=== PATIENT | male | born 1985 | race Caucasian/White ===

== ENCOUNTER 2019-07-11 19:19 | Emergency (ER) | payer OTHER ==
[2019-07-11] MEDS ORDERED: MORPHINE 4 MG/ML SYR ONE (19:42)
[2019-07-11] MEDS ORDERED: ONDANSETRON 4 MG/2 ML VIAL ONE (19:43)
[2019-07-11] MEDS ORDERED: DIAZEPAM 10 MG/2 ML INJ SYRINGE ONE (19:43)
--- NOTE | 2019-07-11 20:15 | RAD REPORT ---
EXAM DESCRIPTION: CT - CTHCSPWOC - 07/11/2019 7:53 pm CLINICAL HISTORY: Trauma, head and neck injury. PAIN COMPARISON: Thoracic Spine W/o Cont dated 07/11/2019 TECHNIQUE: Axial 5 mm thick images of the head were obtained. Axial 2 mm thick images of the cervical spine were obtained with sagittal and coronal reconstruction images generated and reviewed. All CT scans are performed using dose optimization technique as appropriate and may include automated exposure control or mA/KV adjustment according to patient size. FINDINGS: CT HEAD WITHOUT CONTRAST: No acute hemorrhage, hydrocephalus or extra-axial collection is identified.No areas of brain edema or midline shift. The paranasal sinuses and mastoids are clear.The calvarium is intact. CT CERVICAL SPINE WITHOUT CONTRAST: No fracture or subluxation.Moderate lower cervical spondylosis with small endplate osteophyte. Centra l canal stenosis may be present at the C6-7 and C7-T1 level.No prevertebral soft tissues swelling is identified. IMPRESSION: No acute intracranial or cervical spine findings. Moderate lower cervical spondylosis with possible canal stenosis present. Consider followup nonemerge nt MR cervical spine imaging for further detailed assessment.
--- NOTE | 2019-07-11 20:17 | RAD REPORT ---
EXAM DESCRIPTION: CT - Thoracic Spine W/o Cont - 07/11/2019 7:53 pm CLINICAL HISTORY: Radiculopathy. PAIN COMPARISON: Head C Spine Mpr Wo Con dated 07/11/2019 TECHNIQUE: Axial CT imaging through the thoracic spine was performed with coronal and sagittal re-fo rmatted images. All CT scans are performed using dose optimization technique as appropriate and may include automated exposure control or mA/KV adjustment according to patient size. FINDINGS: Vertebral body heights and disc spaces are maintained. A compression fracture is not prese nt. No significant disc space narrowing. Thoracic spine alignment is within normal limits. No paraspinal masses or hematoma. Intervertebral disc detail is inherently limited on CT without gross findings of canal compromise. Multiple small stones are present in the calices of both kidneys. IMPRESSION: No acute thoracic spine abnormality discerned. Bilateral nephrolithiasis.
[2019-07-11 20:28] LABS: Absolute Lymphocytes (CBC) 1.2 K/uL (0.7-4.9); Basophils % 0.5 % (0-1.3); Hematocrit 45.2 % (39.6-49.0); Lymphocytes % 10.2 % (15.3-44.8); MPV 8.4 fL (7.6-11.3); RBC Red Blood Cell Count 4.95 M/uL (4.33-5.43)
[2019-07-11 20:50] LABS: Albumin 4.5 g/dL (3.4-5.0); Bilirubin Direct 0.1 mg/dL (0-0.2); Bilirubin Total 0.4 mg/dL (0.2-1.0); Potassium 4.1 mmol/L (3.5-5.1); Protein, Total 8.3 g/dL (6.4-8.2)
[2019-07-11] MEDS ORDERED: FENTANYL CITR 100 MCG/2 ML ONE (21:20)
--- NOTE | 2019-07-11 21:53 | EDPHYS ---
Physician Documentation [facility] Name: Spencer Simms Age: 33 yrs Sex: Male : 1985 Arrival Date: 07/11/2019 Time: 19:21 Bed 4 Private MD: ED Physician Ta Ryan HPI: 07/11 02:06 This 33 yrs old Male presents to ER via Wheelchair with complaints of Neck tw4 Injury, Possible Stroke. 02:06 The patient or guardian complains of decreased range of motion, pain, that is acute. tw4 The symptoms are located at the cervical spine. Onset: The symptoms/episode began/occurred just prior to arrival, today. Context: The problem was sustained at home. Associated signs and symptoms: The patient has no apparent associated signs or symptoms. The pain radiates to the left trapezius and left scapular area. Modifying factors: The symptoms are alleviated by nothing. the symptoms are aggravated by movement. The patient has not experienced similar symptoms in the past. 02:11 Pt has a history of chronic neck pain. tw4 Historical: - Allergies: 20:09 Toradol; ea - Immunization history:: Adult Immunizations up to date. - Social history:: Smoking status: Patient reports the use of cigarette tobacco products, smokes one-half pack cigarettes per day. ROS: 07/11 02:06 Constitutional: Negative for fever, chills, and weight loss, Eyes: Negative for injury, tw4 pain, redness, and discharge, Cardiovascular: Negative for chest pain, palpitations, and edema, Respiratory: Negative for shortness of breath, cough, wheezing, and pleuritic chest pain, Abdomen/GI: Negative for abdominal pain, nausea, vomiting, diarrhea, and constipation, Back: Negative for injury and pain, MS/Extremity: Negative for injury and deformity, Skin: Negative for injury, rash, and discoloration. Neck: Positive for pain with movement, pain at rest, Negative for injury or acute deformity, mass. Neuro: Positive for weakness. Exam: 02:06 Constitutional: This is a well developed, well nourished patient who is awake, alert, tw4 and in no acute distress. Eyes: Pupils equal round and reactive to light, extra-ocular motions intact. Lids and lashes normal. Conjunctiva and sclera are non-icteric and not injected. Cornea within normal limits. Periorbital areas with no swelling, redness, or edema. Chest/axilla: Normal chest wall appearance and motion. Nontender with no deformity. No lesions are appreciated. Cardiovascular: Regular rate and rhythm with a normal S1 and S2. No gallops, murmurs, or rubs. Normal PMI, no JVD. No pulse deficits. Respiratory: Lungs have equal breath sounds bilaterally, clear to auscultation and percussion. No rales, rhonchi or wheezes noted. No increased work of breathing, no retractions or nasal flaring. Abdomen/GI: Soft, non-tender, with normal bowel sounds. No distension or tympany. No guarding or rebound. No evidence of tenderness throughout. Back: No spinal tenderness. No costovertebral tenderness. Full range of motion. MS/ Extremity: Pulses equal, no cyanosis. Neurovascular intact. Full, normal range of motion. Neuro: Awake and alert, GCS 15, oriented to person, place, time, and situation. Cranial nerves II-XII grossly intact. Motor strength 5/5 in all extremities. Sensory grossly intact. Cerebellar exam normal. Normal gait. 02:06 Neck: External neck: tenderness, that is moderate, of the left mid cervical area, right mid cervical area and lower cervical area. Vital Signs: 20:22 BP 173 / 113; Pulse 91; Resp 18; Temp 98.5; Pulse Ox 100% on R/A; Pain 10/10; jd3 20:38 BP 149 / 112; Pulse 85; Resp 18; Pulse Ox 100% on R/A; mg2 20:41 Pain 8/10; jd3 22:26 BP 168 / 105; Pulse 85; Resp 17 S; Pulse Ox 100% on R/A; jd3 MDM: 19:34 Patient medically screened. tw4 07/11 02:06 Data reviewed: vital signs, nurses notes. Data interpreted: Pulse oximetry: tw4 Interpretation: normal. Counseling: I had a detailed discussion with the patient and/or guardian regarding: the historical points, exam findings, and any diagnostic results supporting the discharge/admit diagnosis. Medication response: morphine partially relieved the patient's pain, valium. Response to treatment: the patient's symptoms have markedly improved after treatment, and as a result, I will discharge patient. Special discussion: I discussed with the patient/guardian in detail that at this point there is no indication for admission to the hospital. It is understood, however, that if the symptoms persist or worsen the patient needs to return immediately for re-evaluation. 19:33 Order name: Basic Metabolic Panel; Complete Time: 21:12 21:12 Interpretation: Normal except: GLUC 123; GFR 75. 19:33 Order name: CBC with Diff; Complete Time: 21:12 21:13 Interpretation: Normal except: WBC 12.2; LYM% 10.2; CESAR% 82.9; NEUT A 10.1. 19:33 Order name: Creatinine for Radiology; Complete Time: 21:12 21:13 Interpretation: Within normal limits: CRE 1.09. 19:33 Order name: Hepatic Function; Complete Time: 21:12 21:13 Interpretation: Normal except: TP 8.3; GLOB 3.8. 19:33 Order name: CT Thoracic Spine Wo Cont; Complete Time: 20:34 19:33 Order name: IV Saline Lock; Complete Time: 20:23 19:33 Order name: Labs collected and sent; Complete Time: 20:23 19:45 Order name: Head C Spine Mpr Wo Con; Complete Time: 20:34 EDMS Administered Medications: 20:23 Drug: Diazepam 1 mg Route: IVP; Site: left antecubital; mg2 20:42 Follow up: Response: No adverse reaction jd3 20:23 Drug: morphine 4 mg Route: IVP; Site: left antecubital; mg2 20:41 Follow up: Pain 8/10 Adult; Response: No adverse reaction; Pain is decreased; RASS: jd3 Alert and Calm (0) 20:23 Drug: Zofran (Ondansetron) 4 mg Route: IVP; Site: left antecubital; mg2 20:41 Follow up: Response: No adverse reaction jd3 21:19 Drug: fentaNYL (PF) 25 mcg Route: IVP; Site: left antecubital; mg2 22:19 Follow up: Response: No adverse reaction; RASS: Alert and Calm (0) jd3 Disposition: 02/29/20 21:52 Discharged to Home. Impression: Other chronic pain, Sprain of ligaments of cervical spine, Sprain of ligaments of thoracic spine. - Condition is Stable. - Discharge Instructions: Chronic Pain, Cervical Sprain. - Prescriptions for Neurontin 300 mg Oral Capsule - take 1 capsule by ORAL route At bedtime; 20 capsule. - Medication Reconciliation Form, Thank You Letter, Antibiotic Education, Prescription Opioid Use form. - Follow up: Private Physician; When: Upon discharge from the Emergency Department; Reason: Recheck today's complaints, Continuance of care, Re-evaluation by your physician. Follow up: Mario Desir MD; When: Upon discharge from the Emergency Department; Reason: If symptoms return, Recheck today's complaints, Continuance of care. Follow up: Darwin Herrera MD; When: Upon discharge from the Emergency Department; Reason: If symptoms return, Recheck today's complaints, Continuance of care, Re-evaluation by your physician. Follow up: Onur Garcia MD; When: Upon discharge from the Emergency Department; Reason: If symptoms return, Recheck today's complaints, Continuance of care, Re-evaluation by your physician. Follow up: Monico Marcum MD; When: Upon discharge from the Emergency Department; Reason: If symptoms return, Recheck today's complaints, Continuance of care, Re-evaluation by your physician. Follow up: Ricci Frnaks MD; When: Upon discharge from the Emergency Department; Reason: If symptoms return, Recheck today's complaints, Continuance of care, Re-evaluation by your physician. Follow up: Jb Duran MD; When: Upon discharge from the Emergency Department; Reason: If symptoms return, Recheck today's complaints, Continuance of care, Re-evaluation by your physician. Signatures: Dispatcher [employer] [facility] Jaz Moncada RN Albert Hussein ea, RN RN jd3 Ta Ryan MD MD tw4 Bonilla Davis RN RN mg2 Corrections: (The following items were deleted from the chart) 19:45 19:34 C Spine Wo Con+CT.RAD.BRZ ordered. [facility] 22:27 21:52 07/11/2019 21:52 Discharged to Home. Impression: Other chronic pain; Sprain of jd3 ligaments of cervical spine; Sprain of ligaments of thoracic spine. Condition is Stable. Forms are Medication Reconciliation Form, Thank You Letter, Antibiotic Education, Prescription Opioid Use. Follow up: Private Physician; When: Upon discharge from the Emergency Department; Reason: Recheck today's complaints, Continuance of care, Re-evaluation by your physician. Follow up: Dr. Mario Desir; When: Upon discharge from the Emergency Department; Reason: If symptoms return, Recheck today's complaints, Continuance of care. Follow up: Darwin Herrera; When: Upon discharge from the Emergency Department; Reason: If symptoms return, Recheck today's complaints, Continuance of care, Re-evaluation by your physician. Follow up: Onur Garcia; When: Upon discharge from the Emergency Department; Reason: If symptoms return, Recheck today's complaints, Continuance of care, Re-evaluation by your physician. Follow up: Monico Marcum; When: Upon discharge from the Emergency Department; Reason: If symptoms return, Recheck today's complaints, Continuance of care, Re-evaluation by your physician. Follow up: Ricci Franks; When: Upon discharge from the Emergency Department; Reason: If symptoms return, Recheck today's complaints, Continuance of care, Re-evaluation by your physician. Follow up: Jb Duran; When: Upon discharge from the Emergency Department; Reason: If symptoms return, Recheck today's complaints, Continuance of care, Re-evaluation by your physician. tw4
--- NOTE | 2019-07-11 21:53 | ER ---
Nurse's Notes [facility] Name: Spencer Simms Age: 33 yrs Sex: Male : 1985 Arrival Date: 07/11/2019 Time: 19:21 Bed 4 Private MD: Diagnosis: Other chronic pain;Sprain of ligaments of cervical spine;Sprain of ligaments of thoracic spine Presentation: 19:21 Chief complaint: Patient states: Reports this morning he started having neck pain, ea numbness and tingling to paulette lower extremities. 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 Coronavirus screen: The patient has NOT traveled to [place] in the past 14 days. Ebola Screen: No symptoms or risks identified at this time. Initial Sepsis Screen: Does the patient meet any 2 criteria? No. Patient's initial sepsis screen is negative. Does the patient have a suspected source of infection? No. Patient's initial sepsis screen is negative. Risk Assessment: Do you want to hurt yourself or someone else? Patient reports no desire to harm self or others. 19:21 Method Of Arrival: Wheelchair ea 19:21 Acuity: NAVYA 3 ea 19:21 Onset of symptoms was July 11, 2019. ea Historical: - Allergies: 20:09 Toradol; ea - Immunization history:: Adult Immunizations up to date. - Social history:: Smoking status: Patient reports the use of cigarette tobacco products, smokes one-half pack cigarettes per day. Screenin:23 Abuse screen: Denies threats or abuse. Nutritional screening: No deficits noted. ea Tuberculosis screening: No symptoms or risk factors identified. Fall Risk None identified. Assessment: 20:13 General: Appears in no apparent distress. uncomfortable, well groomed, Behavior is jd3 calm, cooperative, crying. Pain: Complains of pain in left trapezius, right trapezius, left scapular area, right scapular area and thoracic area Pain radiates to left arm Pain currently is 10 out of 10 on a pain scale. Neuro: Level of Consciousness is awake, alert, obeys commands, Oriented to person, place, time, situation, Sprinkler Worker are equal bilaterally Moves all extremities. Speech is normal, Facial symmetry appears normal, Facial symmetry: tongue is midline, Pupils are PERRLA, pupil size 3mm bilaterally. Cardiovascular: Heart tones S1 S2 present Capillary refill < 3 seconds Patient's skin is warm and dry. Respiratory: Airway is patent Trachea midline Respiratory effort is even, unlabored, Breath sounds are clear bilaterally. GI: Abdomen is flat, non-distended, Bowel sounds present X 4 quads. Abd is soft and non tender X 4 quads. : No signs and/or symptoms were reported regarding the genitourinary system. EENT: No signs and/or symptoms were reported regarding the EENT system. Derm: Skin is intact, is healthy with good turgor, Skin is dry, Skin is normal. Musculoskeletal: Circulation, motion, and sensation intact. Range of motion: intact in all extremities. 21:20 Reassessment: Patient appears in no apparent distress at this time. Patient and/or jd3 family updated on plan of care and expected duration. Pain level reassessed. Patient is alert, oriented x 3, equal unlabored respirations, skin warm/dry/pink. Patient states feeling better. 22:26 Reassessment: Patient appears in no apparent distress at this time. Patient and/or jd3 family updated on plan of care and expected duration. Pain level reassessed. Patient is alert, oriented x 3, equal unlabored respirations, skin warm/dry/pink. Patient states feeling better. Vital Signs: 20:22 BP 173 / 113; Pulse 91; Resp 18; Temp 98.5; Pulse Ox 100% on R/A; Pain 10/10; jd3 20:38 BP 149 / 112; Pulse 85; Resp 18; Pulse Ox 100% on R/A; mg2 20:41 Pain 8/10; jd3 22:26 BP 168 / 105; Pulse 85; Resp 17 S; Pulse Ox 100% on R/A; jd3 ED Course: 19:21 Patient arrived in ED. cl3 19:21 Arm band placed on right wrist. Patient placed in an exam room, on a stretcher, on ea pulse oximetry. 19:21 Patient has correct armband on for positive identification. Bed in low position. Call ea light in reach. Side rails up X2. 19:31 Ta Ryan MD is Attending Physician. tw4 19:34 Bonilla Davis, LYNNETTE is Primary Nurse. mg2 19:53 CT Thoracic Spine Wo Cont In Process Unspecified. EDMS 19:53 Head C Spine Mpr Wo Con In Process Unspecified. EDMS 20:09 Triage completed. ea 20:24 No provider procedures requiring assistance completed. Inserted saline lock: 20 gauge mg2 in left antecubital area, using aseptic technique. Blood collected. 21:51 Mario Desir MD is Referral Physician. tw4 21:51 Darwin Herrera MD is Referral Physician. tw4 21:51 Onur Garcia MD is Referral Physician. tw4 21:51 Monico Marcum MD is Referral Physician. tw4 21:52 Ricci Franks MD is Referral Physician. tw4 21:52 Jb Duran MD is Referral Physician. tw4 22:26 IV discontinued, intact, bleeding controlled, No redness/swelling at site. Pressure jd3 dressing applied. Administered Medications: 20:23 Drug: Diazepam 1 mg Route: IVP; Site: left antecubital; mg2 20:42 Follow up: Response: No adverse reaction jd3 20:23 Drug: morphine 4 mg Route: IVP; Site: left antecubital; mg2 20:41 Follow up: Pain 8/10 Adult; Response: No adverse reaction; Pain is decreased; RASS: jd3 Alert and Calm (0) 20:23 Drug: Zofran (Ondansetron) 4 mg Route: IVP; Site: left antecubital; mg2 20:41 Follow up: Response: No adverse reaction jd3 21:19 Drug: fentaNYL (PF) 25 mcg Route: IVP; Site: left antecubital; mg2 22:19 Follow up: Response: No adverse reaction; RASS: Alert and Calm (0) jd3 Outcome: 21:52 Discharge ordered by . tw4 22:25 Discharged to home via wheelchair, with family. jd3 22:25 Condition: stable 22:25 Discharge instructions given to patient, Instructed on discharge instructions, follow up and referral plans. medication usage, Demonstrated understanding of instructions, follow-up care, medications, Prescriptions given X 1. 22:27 Patient left the ED. jd3 Signatures: Dispatcher [employer] EDMS Jaz Moncada RN RN ea Davies, Jonathon, RN RN jTa Rodriguez MD MD tw4 Bonilla Davis RN RN mg2 Choco Bliss3
[2019-07-11 22:35] VITALS: TEMP 98.5; O2SAT 100
[2019-07-11 22:38] VITALS: BP 168/105
== END 2019-07-11 22:27 | disposition home or self-care (01) ==
LOC: ER 19:19
DX: S13.4XXA Sprain of ligaments of cervical spine, initial encounter (principal); S23.3XXA Sprain of ligaments of thoracic spine, initial encounter; F17.210 Nicotine dependence, cigarettes, uncomplicated; Z88.5 Allergy status to narcotic agent
CPT/HCPCS: 85025; 80048; 36415; 80076; 70450; 72125; 72128; 96375; 96374; 99284; J3360; J3010; J2405